=== PATIENT | male | born 1940 | race Caucasian/White ===

== ENCOUNTER 2019-03-29 08:07 | Emergency (ER) | payer MEDICARE ==
[2019-03-29 08:26] VITALS: BP 141/83
--- NOTE | 2019-03-29 08:53 | UC ---
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 Increasing pain and swelling of the pinna of the left ear, with pain that interrupted sleep last night. He has been using ibuprofen 600mg for the past several days, but has not slept. No fever or chills, denises headache or dizziness. Pre-existing deafness--does not use aides. - History of Current Complaint Chief Complaint: UCEar Stated Complaint: RIGHT EAR COMPLAINT Time Seen by Provider: 03/29/19 08:42 Hx Obtained From: Patient Onset/Duration: Gradual Onset, Lasting Weeks - 2-3 Severity Initially: Severe Severity Currently: Severe Pain Intensity: 10 Alleviating Factors: OTC Meds Associated Signs/Symptoms: Positive: Discharge - unaware of it, but present on exam, Hearing Loss - Allergies/Home Medications Allergies/Adverse Reactions: Allergies Allergy/AdvReac Type Severity Reaction Status Date / Time seasonal Allergy Congestion Uncoded 03/29/19 08:21 Home Medications: Home Medications Ibuprofen TAB* [Advil TAB*] 600 - 800 mg PO Q8HR PRN 03/29/19 [History Confirmed 03/29/19] PMH/Surg Hx/FS Hx/Imm Hx Previously Healthy: Yes - never sees doctors Cardiovascular History: Other - states no hx of hypertension or murmur. - Surgical History Surgical History: None - Family History Known Family History: Positive: Non-Contributory - Social History Occupation: Employed Full-time Lives: With Family Alcohol Use: None Substance Use Type: None Smoking Status (MU): Never Smoked Tobacco Review of Systems All Other Systems Reviewed And Are Negative: Yes Constitutional: Positive: Fatigue ENT: Positive: Ear Ache Respiratory: Positive: Negative Cardiovascular: Positive: Other - no pre-syncopy Gastrointestinal: Positive: Negative Genitourinary: Positive: Negative Is Patient Immunocompromised?: No Physical Exam Triage Information Reviewed: Yes Appearance: Well-Appearing, Pain Distress - moderate Vital Signs: Initial Vital Signs Temp 97.8 F 03/29/19 08:19 Pulse 78 03/29/19 08:19 Resp 18 03/29/19 08:19 BP 141/83 03/29/19 08:19 Pulse Ox 96 03/29/19 08:19 Eye Exam: Normal ENT: Positive: Pharynx normal, Other - Right ear pinna is swollen, warm, red and indurated, with near closure of the right ear canal with white drainage. Tender enlarged right pre-auricular node about 2 cm x 2 cm. No posterior, submandibular or cervical adenopathy. Opens jaw without pain Dental Exam: Normal Neck: Positive: Supple, Nontender, No Lymphadenopathy Respiratory: Positive: Lungs clear, Normal breath sounds Cardiovascular: Positive: RRR, Murmur:Sys:Grade _?_/ - 1--very soft murmur left sternal border without radiation. Musculoskeletal Exam: Normal Musculoskeletal: Positive: Strength Intact Neurological Exam: Normal Neurological: Positive: Alert, Muscle Tone Normal Psychological Exam: Normal Ear Complaint Course/Dx - Course Course Of Treatment: cephalexin for treatment, tylenol with codeine in addition to ibuprofen, ENT if failing treatment. culture of drainage sent. - Differential Dx/Diagnosis Differential Diagnosis/HQI/PQRI: Cellulitis, Otitis Externa Provider Diagnosis: Otitis externa, Cellulitis Discharge ED - Sign-Out/Discharge Documenting (check all that apply): Patient Departure All imaging exams completed and their final reports reviewed: No Studies - Discharge Plan Condition: Stable Disposition: HOME Prescriptions: Acetaminop/Codeine 30 MG TAB* [Tylenol/Codeine 30 MG TAB*] 1 - 2 tab PO Q6H PRN #16 tab MDD 8 PRN Reason: Pain - Moderate cephALEXin [Keflex] 500 mg PO QID #30 capsule Patient Education Materials: Cellulitis (ED) Referrals: No Primary Care Phys,NOPCP [Primary Care Provider] - Henry Hernandez MD [Medical Doctor] - Additional Instructions: Blood pressure was mildly elevated today to 141/83; please follow up with your primary doctor for a recheck of blood pressure in 1 to 2 weeks. Use cephalexin for treatment of ear infection. You will be notified if there a change of antibiotic is needed based on culture. If the pain and drainage persist, you can call the ENT office (Dr. Hernandez) for an evaluation and advice regarding treatment. Continue ibuprofen 600mg up to 3 times per day, with additional use of tyleonol with codeine to relieve pain. - Billing Disposition and Condition Condition: STABLE Disposition: Home
--- NOTE | 2019-03-31 13:37 | ED ---
Progress - Progress Note Progress Note: Please call the patient and direct him to the ER. His culture grew pseudomonas , and Keflex is not adequate. Given his ear being red and swollen he should be on IV antibiotics. Course/Dx - Diagnoses Provider Diagnoses: Otitis externa, Cellulitis Discharge ED - Sign-Out/Discharge Documenting (check all that apply): Patient Departure All imaging exams completed and their final reports reviewed: No Studies - Discharge Plan Condition: Stable Disposition: HOME Prescriptions: Acetaminop/Codeine 30 MG TAB* [Tylenol/Codeine 30 MG TAB*] 1 - 2 tab PO Q6H PRN #16 tab MDD 8 PRN Reason: Pain - Moderate cephALEXin [Keflex] 500 mg PO QID #30 capsule Patient Education Materials: Cellulitis (ED) Referrals: No Primary Care Phys,NOPCP [Primary Care Provider] - Henry Hernandez MD [Medical Doctor] - Additional Instructions: Blood pressure was mildly elevated today to 141/83; please follow up with your primary doctor for a recheck of blood pressure in 1 to 2 weeks. Use cephalexin for treatment of ear infection. You will be notified if there a change of antibiotic is needed based on culture. If the pain and drainage persist, you can call the ENT office (Dr. Hernandez) for an evaluation and advice regarding treatment. Continue ibuprofen 600mg up to 3 times per day, with additional use of tyleonol with codeine to relieve pain. - Billing Disposition and Condition Condition: STABLE Disposition: Home
== END 2019-03-29 09:22 | disposition home or self-care (01) ==
LOC: UCCORT 08:07
DX: H60.91 Unspecified otitis externa, right ear (principal); L03.90 Cellulitis, unspecified; H91.90 Unspecified hearing loss, unspecified ear
CPT/HCPCS: 87070; 87077; 87186; 87205; 87640; 87641; 99202; G0463